=== PATIENT | female | born 1940 | race Caucasian/White ===

== ENCOUNTER 2025-03-24 11:28 | Inpatient (IN) | payer MEDICARE, BC ==
[~2025-03-24] VITALS: Ht 157.5 cm; Wt 57.2 kg
[2025-03-24 11:33] VITALS: BP 156/75; TEMP 98.4
[2025-03-24 13:56] VITALS: BP 156/75; TEMP 98.4
[2025-03-24 14:00] VITALS: BP 156/75; TEMP 98.4
[2025-03-24] MEDS ORDERED: ACET-2154 PO (17:36)
[2025-03-24] MEDS ORDERED: ASCO500C18 PO (17:36)
[2025-03-24] MEDS ORDERED: CLON0.1T PO (17:37)
[2025-03-24] MEDS ORDERED: DOCU100C36 PO (17:38)
[2025-03-24] MEDS ORDERED: CYAN500T47 PO (17:38)
[2025-03-24] MEDS ORDERED: FINA5TAB11 PO (17:39)
[2025-03-24] MEDS ORDERED: ENOX30DI5 SQ (17:39)
[2025-03-24] MEDS ORDERED: LEVO125T8 PO (17:40)
[2025-03-24] MEDS ORDERED: HYDR-4209 PO (17:40)
[2025-03-24] MEDS ORDERED: LISI20TA30 PO (17:41)
[2025-03-24] MEDS ORDERED: MAGN400O6 PO (17:42)
[2025-03-24] MEDS ORDERED: MAG30ORA PO (17:42)
[2025-03-24] MEDS ORDERED: PANT40TA49 PO (17:43)
[2025-03-24] MEDS ORDERED: ONDA4TAB11 PO (17:43)
[2025-03-24] MEDS ORDERED: SIMV-46 PO (17:44)
[2025-03-24] MEDS ORDERED: REMEDY ESSENTIAL ZINC PASTE 113 GM TOP PRN (17:45)
[2025-03-24] MEDS ORDERED: ZINC113P3 TP (17:45)
[2025-03-24 18:52] VITALS: BP 128/68; TEMP 97.8; O2SAT 97
[2025-03-24] MEDS ORDERED: ONDANSETRON ODT 4 MG TAB.RAPDIS SL PRN (19:00)
[2025-03-24] MEDS ORDERED: MAGNESIUM HYDROXIDE 30 ML LIQUID UDC PO PRN (19:00)
[2025-03-24] MEDS ORDERED: ACETAMINOPHEN 325 MG TABLET PO PRN (19:15)
[2025-03-24 19:56] VITALS: BP 135/70; TEMP 98; O2SAT 96
[2025-03-24] MEDS: SIMVASTATIN 20 MG TABLET PO SCH (20:34)
[2025-03-24] MEDS: CLONIDINE HCL 0.1 MG TABLET PO SCH (20:34)
[2025-03-24] MEDS: DOCUSATE SODIUM 100 MG CAPSULE PO SCH (20:34)
[2025-03-24] MEDS: HYDROCODONE/APAP 5-325MG TABLET PO PRN (20:36)
[2025-03-25 05:50] VITALS: BP 136/68; TEMP 97.4; O2SAT 95
[2025-03-25] MEDS: PANTOPRAZOLE SODIUM 40 MG TABLET.DR PO SCH (06:08)
[2025-03-25] MEDS: LEVOTHYROXINE SODIUM 125 MCG TABLET PO SCH (06:08)
[2025-03-25 06:28] LABS: PLATELET COUNT (AUTO) 161 K/uL (179-408); RED BLOOD CELL COUNT(AUTO) 4.26 MIL/uL (3.63-4.92); RED CELL DISTRIBUTION WIDTH 14.2 % (12.3-17.7); WHITE BLOOD COUNT (AUTO) 6.9 K/uL (3.8-11.8)
[2025-03-25 06:41] LABS: IRON, SERUM 29 ug/dL (50-175)
[2025-03-25 07:06] LABS: ASPARTATE AMINOTRANSFERASE 12 U/L (15-37); CREATININE 0.9 mg/dL (0.6-1.3); SODIUM SERUM 141 mmol/L (136-145); TOTAL PROTEIN, SERUM 6.2 g/dL (6.4-8.2); UREA NITROGEN, BLOOD 20 mg/dL (7-18)
[2025-03-25 07:17] VITALS: BP 136/68; TEMP 97.4; O2SAT 95
[2025-03-25 07:47] VITALS: TEMP 98.3; O2SAT 100
[2025-03-25] MEDS: ASCORBIC ACID 500 MG TABLET PO SCH (08:15)
[2025-03-25] MEDS: ENOXAPARIN SODIUM 30 MG/0.3 ML DISP.SYRIN SQ SCH (08:19)
[2025-03-25] MEDS: CYANOCOBALAMIN 1,000 MCG TABLET PO SCH (08:19)
[2025-03-25 20:00] VITALS: BP 129/59; TEMP 97.6; O2SAT 97
[2025-03-26 05:00] VITALS: BP 105/60; TEMP 98; O2SAT 96
[2025-03-26 08:02] LABS: PLATELET COUNT (AUTO) 163 K/uL (179-408); RED BLOOD CELL COUNT(AUTO) 3.86 MIL/uL (3.63-4.92); RED CELL DISTRIBUTION WIDTH 14.2 % (12.3-17.7); WHITE BLOOD COUNT (AUTO) 6.9 K/uL (3.8-11.8)
[2025-03-26 08:14] LABS: CREATININE 0.9 mg/dL (0.6-1.3); SODIUM SERUM 142 mmol/L (136-145); UREA NITROGEN, BLOOD 22 mg/dL (7-18)
[2025-03-26 20:00] VITALS: BP 128/72; TEMP 98.3; O2SAT 96
[2025-03-27 05:10] VITALS: BP 100/64; TEMP 98; O2SAT 95
[2025-03-27] MEDS: LEVOTHYROXINE SODIUM 150 MCG TABLET PO SCH (06:44)
[2025-03-27 07:34] LABS: PLATELET COUNT (AUTO) 183 K/uL (179-408); RED BLOOD CELL COUNT(AUTO) 4.10 MIL/uL (3.63-4.92); RED CELL DISTRIBUTION WIDTH 14.3 % (12.3-17.7); WHITE BLOOD COUNT (AUTO) 5.9 K/uL (3.8-11.8)
[2025-03-27 07:59] LABS: CREATININE 0.8 mg/dL (0.6-1.3); SODIUM SERUM 140 mmol/L (136-145); UREA NITROGEN, BLOOD 23 mg/dL (7-18)
[2025-03-27 08:00] VITALS: BP 145/65; TEMP 97.9; O2SAT 97
[2025-03-27 19:48] VITALS: BP 112/60; TEMP 98.4; O2SAT 97
[2025-03-28 05:12] VITALS: BP 126/54; TEMP 97.7; O2SAT 99
[2025-03-28 20:23] VITALS: BP 138/74; TEMP 98.2
[2025-03-29 07:00] VITALS: BP 125/58; TEMP 97.8
[2025-03-29 07:34] VITALS: BP 155/73; TEMP 97.8; O2SAT 99
[2025-03-29 15:28] VITALS: BP 113/51; TEMP 98.6; O2SAT 96
[2025-03-29 20:31] VITALS: BP 110/49; TEMP 98; O2SAT 96
[2025-03-30 05:41] VITALS: BP 112/54; TEMP 98.7; O2SAT 97
[2025-03-30 08:00] VITALS: BP 136/71; TEMP 98.1; O2SAT 88; O2SAT 97
[2025-03-30 16:00] VITALS: BP 118/58; TEMP 98.8; O2SAT 96
[2025-03-30 20:18] VITALS: BP 108/58; TEMP 98.3; O2SAT 97
[2025-03-31 06:59] VITALS: BP 137/61; TEMP 97.8
[2025-03-31 07:40] LABS: CREATININE 0.9 mg/dL (0.6-1.3); SODIUM SERUM 143 mmol/L (136-145); UREA NITROGEN, BLOOD 24 mg/dL (7-18)
[2025-03-31 08:00] VITALS: BP 139/75; TEMP 98.7; O2SAT 96
[2025-03-31 16:00] VITALS: BP 105/52; TEMP 98.5; O2SAT 97
[2025-03-31 20:00] VITALS: BP 124/50; TEMP 98.7; O2SAT 95
[2025-04-01 01:18] LABS: *BILIRUBIN,URIN NEGATIVE (NEGATIVE); *BLOOD, URINE NEGATIVE (NEGATIVE); *CLARITY,URINE CLEAR (CLEAR); *COLOR,URINE YELLOW (YELLOW); *KETONES,URINE NEGATIVE (NEGATIVE); *PROTEIN,URINE NEGATIVE (NEGATIVE); *UROBILINOGEN,URINE 0.2 E.U./dl (NORMAL); LEUKOCYTE ESTERASE ,URINE TRACE (NEGATIVE); NITRITE, URINE NEGATIVE (NEGATIVE); UGLUCOSE NEGATIVE (NEGATIVE)
[2025-04-01 01:22] LABS: *CREATININE,URINE 48.5 mg/dL (30-125); *SODIUM RNDM,URINE 58 mmol/L (40-220); *URINE TOTAL PROTEIN RANDOM < 6.0 mg/dL (<150/24HR)
[2025-04-01 01:28] LABS: SQUAMOUS EPITHELIAL CELL,UR FEW /HPF (NONE SEEN)
[2025-04-01 05:07] VITALS: BP 128/52; TEMP 98.4; O2SAT 95
[2025-04-01 07:17] LABS: PLATELET COUNT (AUTO) 246 K/uL (179-408); RED BLOOD CELL COUNT(AUTO) 3.84 MIL/uL (3.63-4.92); RED CELL DISTRIBUTION WIDTH 14.5 % (12.3-17.7); WHITE BLOOD COUNT (AUTO) 5.8 K/uL (3.8-11.8)
[2025-04-01 07:30] LABS: CREATININE 0.7 mg/dL (0.6-1.3); SODIUM SERUM 143 mmol/L (136-145); UREA NITROGEN, BLOOD 22 mg/dL (7-18)
[2025-04-01 08:00] VITALS: BP 144/51; TEMP 98.2; O2SAT 95
[2025-04-01 10:59] VITALS: BP 144/51; TEMP 98.4; O2SAT 95
[2025-04-01 16:25] VITALS: BP 130/49; TEMP 97.5; O2SAT 95
[2025-04-01 18:02] LABS: ASPARTATE AMINOTRANSFERASE 26.0 U/L (15-37); TOTAL PROTEIN, SERUM 6.3 g/dL (6.4-8.2)
[2025-04-01 19:50] VITALS: BP 100/55; TEMP 98; O2SAT 97
[2025-04-02 07:08] VITALS: BP 143/65; TEMP 97.7; O2SAT 98
[2025-04-02 21:26] VITALS: BP 132/59; TEMP 97.7; O2SAT 95
[2025-04-03 05:10] VITALS: BP 136/61; TEMP 98.1; O2SAT 97
[2025-04-03 08:10] VITALS: BP 129/60; TEMP 97.8; O2SAT 96
[2025-04-03 16:00] VITALS: BP 115/52; TEMP 98; O2SAT 96
[2025-04-03 20:00] VITALS: BP 129/51; TEMP 97.8; O2SAT 97
[2025-04-04 07:09] VITALS: BP 158/55; TEMP 97.9
[2025-04-04 07:12] VITALS: BP 125/68; TEMP 97.8
[2025-04-04 07:46] VITALS: BP 112/54; TEMP 97.9; O2SAT 97
[2025-04-04 08:40] VITALS: BP 112/54
== END 2025-04-04 14:20 | disposition home health service (06) | DRG 560 ==
LOC: UNDOADMIN 11:28
PROVIDERS: ADMIT Physical Medicine & Rehabilitation Pain Medicine; ATTEND Physical Medicine & Rehabilitation Pain Medicine
DX: S32.592D Other specified fracture of left pubis, subsequent encounter for fracture with routine healing (principal); D68.69 Other thrombophilia; E44.1 Mild protein-calorie malnutrition; W19.XXXD Unspecified fall, subsequent encounter; E78.5 Hyperlipidemia, unspecified; R53.1 Weakness; E88.09 Other disorders of plasma-protein metabolism, not elsewhere classified; E89.0 Postprocedural hypothyroidism; I12.9 Hypertensive chronic kidney disease with stage 1 through stage 4 chronic kidney disease, or unspecified chronic kidney disease; N18.9 Chronic kidney disease, unspecified; K21.9 Gastro-esophageal reflux disease without esophagitis; Z87.891 Personal history of nicotine dependence; E87.5 Hyperkalemia; F32.A Depression, unspecified; F41.9 Anxiety disorder, unspecified; Z87.440 Personal history of urinary (tract) infections
CPT/HCPCS: 36415; 83550; 83735; 84100; 84300; 84443; 85025; 97535-GO-CO; A4663; J1650; Q0162